=== PATIENT | female | born 1975 | race Caucasian/White ===

== ENCOUNTER 2017-06-27 05:35 | Day surgery (SDC) | payer BC ==
[~2017-06-27] VITALS: Ht 170.2 cm; Wt 57.6 kg
--- NOTE | ~2017-06-27 | O ---
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 PROCEDURE: 1. Maxillary LeFort 1 osteotomy. 2. Mandibular bilateral sagittal osteotomies. 3. Rigid skeletal fixation. SURGEON: Magnus Lockhart D.D.S. PRECISION INSTRUMENT MAKER AND REPAIRER: Nancie Powers ANESTHESIA: General vena via nasal endotracheal. 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 The patient has a history of some jaw problems, had worn a splint to try to help that and subsequently developed a malocclusion and facial deformity. She has undergone presurgical orthodontic treatment, had been evaluated by another oral surgeon who had planned surgery; however, due to some health issues. The patient was transferred to our care. We evaluated the patient also and determined the maxillary and mandibular skeletal facial deformities and planned for definitive surgical correction. DESCRIPTION OF PROCEDURE: After satisfactory general nasal endotracheal anesthesia with the patient in supine position, hypopharyngeal pack was placed. Extraoral face was prepped and draped free in the usual manner for sterile procedure. Approximately 15 mL of 0.25% Marcaine, 1:200,000 epinephrine was injected in the mandibular ramus regions and in the maxillary buccal vestibule. A mucoperiosteal incision approximately 2-3 cm in length was then made over the right mandibular ramus region. Periosteum elevated off the lingual aspect of the ramus of the mandible and the buccal aspect of the posterior portion of the [address] [address] OPERATIVE REPORT Name: CHLOE MCGILL Room #: [facility].#: [id number] Admission: 06/27/17 Attend Phys: Magnus Lockhart DDS Discharge: 06/28/17 Date of : 79 Report #: [id number] body of the mandible. Inferior alveolar nerve was identified as it entered the lingula. It was protected in a lingual bone cut made to the lingual cortex of bone superior to the nerve and then, a vertical bone cut made through the inferior border of the mandible approximately at the 1st or 2nd molar region and then these 2 cuts were connected with a sagittal cut along the superior border. Attention was turned to the left side, similar mucoperiosteal incision, periosteum elevated, nerve protected and the bone cuts were made identical on the left side. At this point, attention was turned to the maxillary osteotomy. A mucoperiosteal incision was made from the right maxillary buttress region to the left maxillary buttress region just above the attached gingiva through the free mucosa. Periosteum then elevated superiorly exposing the lateral antral wall. It was tunneled posteriorly back to the pterygoid plates of bone and then, gentle dissection was used to separate the lateral nasal wall from the floor of the nose, the mucosa from the lateral nasal wall from the floor of the nose. Protecting the nasal mucosa, reference holes were placed above the cuspid and first molar teeth bilaterally and then a bone cut made above the roots of the teeth from the piriform aperture back to the pterygoid plates. A large curved osteotome was used to separate the pterygoid plates from the posterior maxilla and then gentle tapping of an osteotome along the lateral nasal wall to separate the lateral nasal wall from the hard palate and then a vomer chisel used to separate the vomer bone. At this point, the maxilla was down fractured. A prefabricated surgical splint was used to place the maxilla into maxillomandibular fixation with the mandible. Mandible was then auto rotated superiorly into its new anatomic position as determined by the reference holes placed previously. Bony interferences were removed as necessary with the drill and rongeurs. Once the new position was achieved, then KLS 1.5 bone plates and screws were used, 2 L-shaped plates in the anterior and 2 straight plates on the right side and 1 straight plate on the left side with 1.5 mm screws were used to secure the maxilla. Once this was rigidly fixated, the fixation wires were released. The mandible swung freely into the surgical splint indicating good position and attention was turned to the mandibular osteotomies. A thin osteotome was introduced superiorly on both sides. Then, moving anterior to posterior along the inferior border, sagittal split was completed without difficulty. Nerve required almost no dissection on the right side and none on the left side. A muscular sling was stripped off the inferior border and the teeth were brought into maxillomandibular fixation into a final surgical splint using four 24-gauge wires. The condylar segments were gently approximated and secured with a 2.0 KLS bicortical screws, 11 and 13 mm in length, 3 on each side along the superior border. Once this fixation was achieved, the fixation wires were released. Mandible swung freely into the splint again indicating good position. Wounds were thoroughly irrigated and suctioned. At this point, an alar tuck suture was placed with a 4-0 Dexon and then, the mucosal wound was closed with 3-0 gut continuous horizontal mattress sutures. Blood loss for the procedure approximately 300 mL, replaced with an 1800 mL crystalloid. There [facility] [address] [place] [address] OPERATIVE REPORT Name: CHLOE MCGILL Room #: [facility].#: [id number] Admission: 06/27/17 Attend Phys: Magnus Lockhart DDS Discharge: 06/28/17 Date of : 79 Report #: [id number] were no intraoperative complications, and the patient was sent to the recovery room in satisfactory condition. <ELECTRONICALLY SIGNED> By: Magnus Lockhart DDS 07/13/17 1101 [id number] Magnus Lockhart DDS /nt
[~2017-06-27 05:35] MED LIST: GLUCOSAMINE &1 EACH PO; JUICE PLUS PO; LEXAPRO5 MG PO
[2017-06-27 12:30] VITALS: BP 100/51
[2017-06-27 19:34] VITALS: BP 120/80
[2017-06-28 04:02] VITALS: BP 103/67
[2017-06-28 07:35] VITALS: BP 101/70
== END 2017-06-28 14:04 | disposition home or self-care (01) ==
LOC: TBA 05:35 → OR 05:35 → TBA 05:36 → OR 09:13 → 4S 17:32 → ENTRNSPT 06-28 13:51 → EDTRNSPTSTS 06-28 13:53 → OR 06-28 14:04
DX: M26.03 Mandibular hyperplasia (principal); M26.29 Other anomalies of dental arch relationship
CPT/HCPCS: 50010; 50101; 55430; 62110; 62900; 64034; 70005